=== PATIENT | male | born 1975 | race American Indian/Alaskan Native ===

== ENCOUNTER 2018-01-05 14:27 | Inpatient (IN) | payer MEDICAID ==
--- NOTE | 2018-01-05 14:56 | C.PDOC ---
History Of Present Illness 42 year old male with PMhx of alcohol and cocaine abuse is snet from [facility] for admission to the psych unit. Patient presented to [facility] with acute intoxication and suicide thoughts, patient has been accepted as a voluntary psych admission for Bipolar disorder and schizophrenia by Dr. Gunter. Patient denies any acute complaints at this time. Chief Complaint (Nursing): Psychiatric Evaluation History Per: Patient, Other ([facility]) History/Exam Limitations: no limitations Onset/Duration Of Symptoms: Days Current Symptoms Are (Timing): Still Present Suicide/Self Injury Attempted (Context): None Associated Symptoms: Depression, Suicidal Thoughts. denies: Suicidal Plan Involuntary Hold By: None Recent travel outside of the [place]: No Additional History Per: Patient Past Medical History Reviewed: Historical Data, Nursing Documentation, Vital Signs Vital Signs: Last Vital Signs Temp 97.8 F 01/05/18 14:47 Pulse 90 01/05/18 14:47 Resp 18 01/05/18 14:47 BP 147/90 01/05/18 14:47 Pulse Ox 97 01/05/18 14:47 - Medical History PMH: No Chronic Diseases Surgical History: No Surg Hx Family History: States: Unknown Family Hx - Social History Hx Tobacco Use: No Hx Alcohol Use: Yes Hx Substance Use: Yes (cocaine) Review Of Systems Constitutional: Negative for: Fever, Chills Cardiovascular: Negative for: Chest Pain, Palpitations Respiratory: Negative for: Cough, Shortness of Breath Skin: Negative for: Rash Neurological: Negative for: Weakness, Numbness Psych: Negative for: Depression, Suicidal ideation Physical Exam - Physical Exam Appears: Non-toxic, No Acute Distress Skin: Normal Color, Warm, Dry Head: Atraumatic, Normacephalic Eye(s): bilateral: Normal Inspection Nose: No Discharge, No Deformity Oral Mucosa: Moist Neck: Normal ROM, Supple Chest: Symmetrical Cardiovascular: Rhythm Regular, No Murmur Respiratory: Normal Breath Sounds, No Rales, No Rhonchi, No Wheezing Gastrointestinal/Abdominal: Soft, No Tenderness, No Guarding, No Rebound Extremity: Normal ROM, No Tenderness, No Swelling Neurological/Psych: Oriented x3, Normal Speech Disposition - Disposition Disposition: HOSPITALIZED Disposition Time: 14:53 Condition: FAIR Forms: [employer] (Indonesian) - Clinical Impression Clinical Impression: Schizophrenia, Manic bipolar I disorder - Scribe Statement The provider has reviewed the documentation as recorded by the Scribe Kobe Agustin All medical record entries made by the Scribe were at my direction and personally dictated by me. I have reviewed the chart and agree that the record accurately reflects my personal performance of the history, physical exam, medical decision making, and the department course for this patient. I have also personally directed, reviewed, and agree with the discharge instructions and disposition.
--- NOTE | 2018-01-05 14:57 | C.PDOC ---
History Of Present Illness 42 year old male with PMhx of alcohol and cocaine abuse is snet from [facility] for admission to the psych unit. Patient presented to [facility] with acute intoxication and suicide thoughts, patient has been accepted as a voluntary psych admission for Bipolar disorder and schizophrenia by Dr. Gunter. Patient denies any acute complaints at this time. Chief Complaint (Nursing): Psychiatric Evaluation History Per: Patient, Other ([facility] ) Onset/Duration Of Symptoms: Days Current Symptoms Are (Timing): Gone Suicide/Self Injury Attempted (Context): None Modifying Factor(s): Alcohol, Cocaine Associated Symptoms: Suicidal Thoughts. denies: Depression, Suicidal Plan Recent travel outside of the [place]: No Additional History Per: Patient, EMS Past Medical History Reviewed: Historical Data, Nursing Documentation, Vital Signs - Medical History PMH: No Chronic Diseases Surgical History: No Surg Hx Family History: States: Unknown Family Hx - Social History Hx Tobacco Use: No Hx Alcohol Use: Yes Hx Substance Use: Yes (cocaine) Review Of Systems Constitutional: Negative for: Fever, Chills Cardiovascular: Negative for: Chest Pain, Palpitations Respiratory: Negative for: Cough, Shortness of Breath Gastrointestinal: Negative for: Nausea, Vomiting, Abdominal Pain Skin: Negative for: Rash Psych: Negative for: Depression, Suicidal ideation Physical Exam - Physical Exam Appears: Non-toxic, No Acute Distress Skin: Normal Color, Warm, Dry Head: Atraumatic, Normacephalic Eye(s): bilateral: Normal Inspection Nose: No Discharge Oral Mucosa: Moist Neck: Normal ROM, Supple Chest: Symmetrical Cardiovascular: Rhythm Regular, No Murmur Respiratory: Normal Breath Sounds, No Rales, No Rhonchi, No Wheezing Gastrointestinal/Abdominal: Soft, No Tenderness, No Guarding, No Rebound Extremity: Normal ROM, No Tenderness, No Swelling, Other (no evidence of external IV drug use) Neurological/Psych: Oriented x3, Normal Speech Gait: Steady Medical Decision Making Medical Decision Making: Admitted under Dr. Gunter for bipolar disorder and schizophrenia Disposition - Disposition Forms: [employer] ([employer]) - Scribe Statement The provider has reviewed the documentation as recorded by the Scribe Kobe Agustin All medical record entries made by the Scribe were at my direction and personally dictated by me. I have reviewed the chart and agree that the record accurately reflects my personal performance of the history, physical exam, medical decision making, and the department course for this patient. I have also personally directed, reviewed, and agree with the discharge instructions and disposition.
[2018-01-05] MEDS: Multiple Vitamins Tab PO SCH (17:07)
--- NOTE | 2018-01-05 17:51 | PCM.BM ---
<Ke Matias - Last Filed: 01/05/18 17:48> Treatment Plan Problems - Problems identified on initial assessmt Substabce abuse Date Initiated: 01/05/18 Time Initiated: 15:45 Status: Active Depression Date Initiated: 01/05/18 Time Initiated: 15:45 Assessment reference: NA Status: Active Treatment assets and liabiliti Patient Assests: adapts well, cooperative, ADL independent, physically healthy, good support system, negotiates basic needs, financial stabiity Patient Liabilities: dietary restrictions (HTN), substance abuse (Cocaine, Marijuana), medical problems (Bipolar Disorder, Anemia, Hypertension) - Milieu Protocol Maintain good personal hygiene: daily Encourage regular showers, every shift Remind patient to perform daily oral care, every shift Assist patient to perform ADL's Conduct patient checks and document Observation sheet: Q15 minutes Maintain personal safety: every shift Educate patient to report safety concerns to staff, every shift Monitor environment for contraband/sharps Medication safety: Monitor for expected outcome, potential side effects: every shift, Assess barriers to learning: every shift, Assess readiness for medication education: every shift <Barbara Esparza - Last Filed: 01/07/18 19:40> - Diagnosis (1) Depression Status: Acute Interventions: 01/07/18 19:41 * Assess/adjust medications daily and /or as needed * See patient on an individual basis 7x/week to assess symptoms of depression * Monitor for side effects & effectiveness of medications * (2) Alcohol use disorder, severe, dependence Status: Acute Interventions: 01/07/18 19:41 * Assess 7x/week regarding severity of withdrawal * Educate regarding risks, benefits, side effects and alternatives of medications * Use Motivational Interviewing for abstinence * Use CBT for relapse prevention * Medication management for withdrawal symptoms * Encourage medication assisted treatment * <Shanice Nicole - Last Filed: 01/08/18 11:07> Family Contact Family contact: Patient agrees to contact, Patient declines to allow family contact at present Family contact name: Harriet Jones-sister Family contacted how many times per week?: 1 - Goals for Treatment Patient goals for treatment: "I want to go to a private psychiatrist." Discharge/Continuing Care - Education Needs Education Needs: Patient Medication, Patient Coping Skills, Patient Placement options, Patient Community resources - Discharge Discharge Criteria: Tolerates medication w/o severe side effects, No longer exhibiting s/s of withdrawal, Reduction of target symptoms Discharge to:: Home - Treatment Team Participation Discussed with Family/SO: No Was Patient/Family/SO present at Treatment Team Meeting: Yes
[2018-01-06] MEDS: Multiple Vitamins Tab PO SCH (09:19)
--- NOTE | 2018-01-06 21:47 | PCM.PSYCH ---
Initial Psychiatric Evaluation - Initial Psychiatric Evaluation Type of Admission: Voluntary Legal Status: Capacity Chief Complaint (in patient's own words): "Depressed" History of Present Illness and Precipitating Events: The patient is seen, chart reviewed and case discussed. This is a 42-year-old -Omani male, with 2 children aged 13 and 16. 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 He reports feeling depressed, unmotivated, tired, unenergetic, anxious. He says he is up and down a lot. He also drinks a pint of alcohol every day for the past 2 years, cocaine once a week about 1 g for the last 1 year and he also started Mollys the last one year. Smokes 1 pack per day cigarettes for the last year and a half but stopped marijuana. His functioning has been very low He had suicidal thoughts but currently he says "it's less" He agrees to follow safety plan. Past psych history: He was hospitalized 4 times and diagnosed with bipolar disorder but he doesn't report any jovanni. He attempted suicide twice in the past by overdosing or cutting. Family psych history: Denies Medical history: Questionable high blood pressure. Current Medications: Active Medications Generic Name Dose Route Start Last Admin Trade Name Oliverq PRN Reason Stop Dose Admin Aripiprazole 5 mg 01/06/18 22:00 01/06/18 21:17 Abilify PO 5 mg HS AIDEN Administration Chlordiazepoxide 25 mg 01/05/18 18:00 01/06/18 17:41 Librium PO 01/09/18 17:59 25 mg TID AIDEN Administration Taper Escitalopram Oxalate 5 mg 01/06/18 21:00 01/06/18 21:17 Lexapro PO 5 mg DAILY AIDEN Administration Folic Acid 1 mg 01/05/18 16:45 01/06/18 09:19 Folic Acid PO 1 mg DAILY AIDEN Administration Gabapentin 300 mg 01/05/18 18:00 01/06/18 17:41 Neurontin PO 300 mg BID AIDEN Administration Multivitamins 1 tab 01/05/18 16:45 01/06/18 09:19 Hexavitamin PO 1 tab DAILY AIDEN Administration Thiamine HCl 100 mg 01/05/18 16:45 01/06/18 09:21 Vitamin B1 Tab PO 100 mg DAILY AIDEN Administration Trazodone HCl 100 mg 01/06/18 20:05 Desyrel PO HS PRN Insomnia Past Psychiatric History - Past Psychiatric History Previous Treatment History: Inpatient Pertinent Medical Hx (Current Medical&Sleep Prob, Allergies): Allergies Allergy/AdvReac Type Severity Reaction Status Date / Time No Known Allergies Allergy Verified 01/05/18 14:58 Benztropine [Benztropine Mesylate] 0.5 mg PO BID 01/05/18 OXcarbazepine [Trileptal] 300 mg PO BID 01/05/18 Risperidone [Risperdal] 1 mg PO BID 01/05/18 Review of Systems - Neurological Neurological: UNREMARKABLE - Psychiatric Psychiatric: Abnormal Sleep Pattern, Anhedonia, Anxiety, Change in Appetite, Depression, Difficulty Concentrating. absent: Homicidal Ideation, Suicidal Ideation Mental Status Examination - Personal Presentation Personal Presentation: Looks older than stated age - Affect Affect: Constricted - Motor Activity Motor Activity: Calm - Reliability in Providing Information Reliability in Providing Information: Good - Speech Speech: Organized - Mood Mood: Depressed, Anxious - Formal Thought Process Formal Thought Process: No Impairment - Cognitive Functions Orientation: Person, Place, Situation, Time Sensorium: Alert Attention/Concentration: Attentive Estimate of Intelligence: Average Judgement: Intact, as evidence by: Insight regarding need for hospitalization Memory: Recent intact, as evidence by: Ability to recall events of the day, Remote intact, as evidenced by: Abilit to recall sig. life events - Risk Risk: Diminished functioning - Strength & Assets Inventory Strength & Assets Inventory: Cooperative - Limitations Limitations: Other DSM 5 DX - DSM 5 DSM 5 Diagnosis: Major depressive disorder, recurrent, severe, without psychosis r/o Bipolar I d/o - depressed Anxiety disorder, unspecified Alcohol use disorder, severe Alcohol withdrawal Cocaine use disorder, moderate Tobacco use disorder, severe Hallucinogenic use disorder, moderate - Recommended/Plan of Treatment Treatment Recommendations and Plan of Treatment: Start Lexapro for depression Abilify for irritability, augmentation and mood swings Librium detox All risks, benefits and alternatives of the meds discussed, and the pt agreed and understood. Attend groups and activities Individual therapy daily Psychoeducation and support daily Encourage compliance with meds and after care Refer to outpatient program Teach healthy lifestyle methods, i.e. diet, exercise, meditation Smoking cessation and patch if needed 32 min Projected ELOS: 4-5 days Prognosis: fair Discharge Plan and Discharge Criteria: Refer to rehab or IOP with psych component - Smoking Cessation Smoking Cessation Initiated: Yes
[2018-01-07] MEDS: Multiple Vitamins Tab PO SCH (09:06)
--- NOTE | 2018-01-07 19:43 | PCM.PYCHPN ---
Psychiatric Progress Note - Psychiatric Progress Note Patient seen today, length of contact: 18 min Patient Chief Complaint: "Not good" Problems Identified/Issues Discussed: The pt is seen, chart reviewed, case discussed with staff. The pt is compliant with medications and reports no side-effects. Symptoms are improving slowly but needs more time to stabilize. Still has vague SI w/o any plan or urge, isolates self a lot. Contracted for safety and will follow safety plan After care discussed, support and psychoeducation given. Medication Change: Yes (meds increased) Medical Record Reviewed: Yes Mental Status Examination - Cognitive Function Orientation: Person, Place, Situation, Time Memory: Intact Attention: WNL Concentration: Poor Association: WNL Fund of Knowledge: WNL - Mood Mood: Depressed, Anxious - Affect Affect: Constricted - Speech Speech: Appropriate - Formal Thought Process Formal Thought Process: No Impairment - Suicidal Ideation Suicidal Ideation: No - Homicidal Ideation Homicidal Ideation: No Goal/Treatment Plan - Goal/Treatment Plan Need for Continued Stay: Discharge may exacerbated symptoms, Severe functional impairment Progress Toward Problem(s) and Goals/Treatment Plan: Lexapro for depression Abilify for irritability, augmentation and mood swings Librium detox All risks, benefits and alternatives of the meds discussed, and the pt agreed and understood. Attend groups and activities Individual therapy daily Psychoeducation and support daily Encourage compliance with meds and after care Refer to outpatient program Teach healthy lifestyle methods, i.e. diet, exercise, meditation Smoking cessation and patch if needed
[2018-01-08] MEDS: Multiple Vitamins Tab PO SCH (09:01)
--- NOTE | 2018-01-08 10:08 | PCM.PYCHPN ---
Psychiatric Progress Note - Psychiatric Progress Note Patient seen today, length of contact: 18 min Patient Chief Complaint: I am feeling anxious.' Problems Identified/Issues Discussed: Patient seen and evaluated, chart reviewed and discussed with the nurse. Pt reports some improvement in his depressed mood and irritability. Patient is compliant with medications and denies any side effects. Symptoms are improving but need more time to stabilize. Support and psychoeducation given. Medication Change: Yes (meds increased) Medical Record Reviewed: Yes Mental Status Examination - Cognitive Function Orientation: Person, Place, Situation, Time Memory: Intact Attention: WNL Concentration: Poor Association: WNL Fund of Knowledge: WNL - Mood Mood: Depressed, Anxious - Affect Affect: Constricted - Speech Speech: Appropriate - Formal Thought Process Formal Thought Process: No Impairment - Suicidal Ideation Suicidal Ideation: No - Homicidal Ideation Homicidal Ideation: No Goal/Treatment Plan - Goal/Treatment Plan Need for Continued Stay: Discharge may exacerbated symptoms, Severe functional impairment Progress Toward Problem(s) and Goals/Treatment Plan: Major depressive disorder, recurrent, severe, without psychosis r/o Bipolar I d/o - depressed Anxiety disorder, unspecified Alcohol use disorder, severe Alcohol withdrawal Cocaine use disorder, moderate Tobacco use disorder, severe Hallucinogenic use disorder, moderate Lexapro for depression Abilify for irritability, augmentation and mood swings Librium detox All risks, benefits and alternatives of the meds discussed, and the pt agreed and understood. Attend groups and activities Individual therapy daily Psychoeducation and support daily Encourage compliance with meds and after care Refer to outpatient program Teach healthy lifestyle methods, i.e. diet, exercise, meditation Smoking cessation and patch if needed
[2018-01-09] MEDS: Multiple Vitamins Tab PO SCH (10:13)
--- NOTE | 2018-01-10 00:21 | PCM.PYCHPN ---
Psychiatric Progress Note - Psychiatric Progress Note Patient seen today, length of contact: 18 min Patient Chief Complaint: 1 am feeling little better.' Problems Identified/Issues Discussed: Patient seen and evaluated, chart reviewed and discussed with the nurse. Pt reports some improvement in his depressed mood and irritability. He still reports withdrawal s/s including sweating, anxiety and headaches. Patient is compliant with medications and denies any side effects. Symptoms are improving but need more time to stabilize. Support and psychoeducation given. Medication Change: Yes (meds increased) Medical Record Reviewed: Yes Mental Status Examination - Cognitive Function Orientation: Person, Place, Situation, Time Memory: Intact Attention: WNL Concentration: Poor Association: WNL Fund of Knowledge: WNL - Mood Mood: Depressed, Anxious - Affect Affect: Constricted - Speech Speech: Appropriate - Formal Thought Process Formal Thought Process: No Impairment - Suicidal Ideation Suicidal Ideation: No - Homicidal Ideation Homicidal Ideation: No Goal/Treatment Plan - Goal/Treatment Plan Need for Continued Stay: Discharge may exacerbated symptoms, Severe functional impairment Progress Toward Problem(s) and Goals/Treatment Plan: Major depressive disorder, recurrent, severe, without psychosis r/o Bipolar I d/o - depressed Anxiety disorder, unspecified Alcohol use disorder, severe Alcohol withdrawal Cocaine use disorder, moderate Tobacco use disorder, severe Hallucinogenic use disorder, moderate Lexapro for depression Abilify for irritability, augmentation and mood swings Librium detox All risks, benefits and alternatives of the meds discussed, and the pt agreed and understood. Attend groups and activities Individual therapy daily Psychoeducation and support daily Encourage compliance with meds and after care Refer to outpatient program Teach healthy lifestyle methods, i.e. diet, exercise, meditation Smoking cessation and patch if needed - Smoking Cessation Smoking Cessation Initiated: No
[2018-01-10 06:22] VITALS: RESP 20
[2018-01-10] MEDS: Multiple Vitamins Tab PO SCH (10:07)
--- NOTE | 2018-01-10 10:55 | PCM.PYCHPN ---
Psychiatric Progress Note - Psychiatric Progress Note Patient seen today, length of contact: 16 min Patient Chief Complaint: I am feeling little better.' Problems Identified/Issues Discussed: Patient seen and evaluated, chart reviewed and discussed with the nurse. Pt reports some improvement in his depressed mood and irritability. He reports improvement in the withdrawal symptoms. Patient is compliant with medications and denies any side effects. Symptoms are improving but need more time to stabilize. Support and psychoeducation given. Medication Change: Yes (meds increased) Medical Record Reviewed: Yes Mental Status Examination - Cognitive Function Orientation: Person, Place, Situation, Time Memory: Intact Attention: WNL Concentration: WNL Association: WNL Fund of Knowledge: WNL - Mood Mood: Depressed, Anxious - Affect Affect: Constricted - Speech Speech: Appropriate - Formal Thought Process Formal Thought Process: No Impairment - Suicidal Ideation Suicidal Ideation: No - Homicidal Ideation Homicidal Ideation: No Goal/Treatment Plan - Goal/Treatment Plan Need for Continued Stay: Discharge may exacerbated symptoms, Severe functional impairment Progress Toward Problem(s) and Goals/Treatment Plan: Major depressive disorder, recurrent, severe, without psychosis r/o Bipolar I d/o - depressed Anxiety disorder, unspecified Alcohol use disorder, severe Alcohol withdrawal Cocaine use disorder, moderate Tobacco use disorder, severe Hallucinogenic use disorder, moderate Lexapro for depression Abilify for irritability, augmentation and mood swings Librium detox All risks, benefits and alternatives of the meds discussed, and the pt agreed and understood. Attend groups and activities Individual therapy daily Psychoeducation and support daily Encourage compliance with meds and after care Refer to outpatient program Teach healthy lifestyle methods, i.e. diet, exercise, meditation Smoking cessation and patch if needed
[2018-01-11 08:34] VITALS: O2SAT 98
[2018-01-11] MEDS: Multiple Vitamins Tab PO SCH (09:38)
[2018-01-11] MEDS ORDERED: Bismuth Subsalicylate 262 mg Chew Tab PO PRN (18:10)
[2018-01-12 06:24] VITALS: BP 127/86; PULSE 73; TEMP 97.9
[2018-01-12] MEDS: Multiple Vitamins Tab PO SCH (09:31)
--- NOTE | 2018-01-12 11:00 | PCM.PYCHDC ---
Mental Status Examination - Mental Status Examination Orientation: Person, Place, Situation, Time Memory: Intact Mood: Neutral Affect: Constricted Speech: Soft Attention: WNL Concentration: WNL Association: WNL Fund of Knowledge: WNL Formal Thought Process: No Impairment Description of patient's judgement and insight: good, fair Psychotic Thoughts and Behaviors: denies any AVH Suicidal Ideation: No Current Homicidal Ideation?: No Discharge Summary - Discharge Note Reason for Hospitalization: The patient is seen, chart reviewed and case discussed. This is a 42-year-old -[place] male, with 2 children aged 13 and 16. 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 He reports feeling depressed, unmotivated, tired, unenergetic, anxious. He says he is up and down a lot. He also drinks a pint of alcohol every day for the past 2 years, cocaine once a week about 1 g for the last 1 year and he also started Mollys the last one year. Smokes 1 pack per day cigarettes for the last year and a half but stopped marijuana. His functioning has been very low He had suicidal thoughts but currently he says "it's less" He agrees to follow safety plan. Past psych history: He was hospitalized 4 times and diagnosed with bipolar disorder but he doesn't report any jovanni. He attempted suicide twice in the past by overdosing or cutting. Consultations:: List each consultation separately and include: 1. Reason for request. 2. Findings. 3. Follow-up Summary of Hospital Course include:: 1. Description of specific treatment plan utilized for patients during their course of treatmen. 2. Summarize the time- course for resolution of acute symptoms and/or regressed behaviors. 3. Describe issues identified and worked on during hospitalization. 4. Describe medication utilized. 5. Describe medical problems identified and treated. 6. Reassessment of suicide risk Summary of Hospital Course: During the course of his stay, patient (pt) started progressively improving and he no longer remained irritable, depressed, and suicidal. His mood and anxiety symptoms were improved and he started attending groups and meetings and started socializing. Patient denied any feelings of hopelessness, helplessness, and worthlessness, denied any problem with the sleep or appetite, denied suicidal ideation or homicidal ideation. Pt denied any auditory or visual hallucinations. He denied any withdrawal symptoms. Some changes were made in his current medications and patient was discharged on following medications. He tolerated these medications very well and denied any side effects. He was discharged to the [facility]. - Final Diagnosis (DSM 5) Condition upon Discharge: FAIR DSM 5: Major depressive disorder, recurrent, severe, without psychosis r/o Bipolar I d/o - depressed Anxiety disorder, unspecified Alcohol use disorder, severe Alcohol withdrawal Cocaine use disorder, moderate Tobacco use disorder, severe Hallucinogenic use disorder, moderate Disposition: HOME/ ROUTINE Follow-up Treatment Plan: Education: Pt was educated and counseled about the risks and benefits of taking and not taking medications. Pt was educated and counseled about the risks of drinking and abusing drugs. Pt was educated and counseled to go to the ER or call 911 if pt develop suicidal ideation or homicidal ideation, worsening of symptoms or severe side effects of the meds. Prescriptions/Medication Reconciliation: ARIPiprazole [Abilify] 10 mg PO HS #30 tab Escitalopram [Lexapro] 10 mg PO DAILY #30 tab Gabapentin [Neurontin] 300 mg PO BID #60 cap traZODone [Desyrel] 100 mg PO HS PRN #30 tab PRN Reason: Insomnia - Smoking Cessation Smoking Cessation Medication prescribed: No - Antipsychotic Medications Pt discharged on 2 or more routine antipsychotic medications: No
== END 2018-01-12 14:38 | disposition home or self-care (01) | DRG 430 ==
LOC: C.ER 14:27 → C.5E 14:59
DX: F33.2 Major depressive disorder, recurrent severe without psychotic features (principal); F10.239 Alcohol dependence with withdrawal, unspecified; F14.10 Cocaine abuse, uncomplicated; F17.210 Nicotine dependence, cigarettes, uncomplicated; F41.9 Anxiety disorder, unspecified